=== PATIENT | male | born 1945 | race Caucasian/White ===

== ENCOUNTER 2024-01-25 16:13 | Outpatient (CLI) | payer MEDICARE, SELFPAY ==
--- NOTE | 2024-01-25 15:15 | DI.RAD_ITS ---
Exam(s) XR PELVIS AP EXAM: XR PELVIS AP CLINICAL HISTORY: RIGHT HIP PAIN. TECHNIQUE: 2D digital imaging was performed. Single AP view. COMPARISON: CR XR HIP RT MIN 2V AND PELVIS from 05/07/2023 FINDINGS: BONES: No acute fracture is present. No bony destructive lesion is seen. JOINTS: No dislocation present. Severe narrowing of the right hip joint space. Periarticular spurrin g. Mild narrowing of the left hip joint space. SOFT TISSUE: Normal. IMPRESSION: Advanced degenerative changes of the right hip. DATA REPOSITORY: RADIATION DOSE DELIVERED:
== END 2024-01-25 16:14 | disposition home or self-care (01) ==
LOC: DIORS 16:13
PROVIDERS: PCP Family Medicine; Referring Provider Family Medicine; Visit Provider Student in an Organized Health Care Education/Training Program
DX: M16.11 Unilateral primary osteoarthritis, right hip
CPT/HCPCS: 99204; 72170

== ENCOUNTER 2024-02-01 11:18 | Outpatient (CLI) | payer MEDICARE, SELFPAY ==
[2024-02-01 14:47] LABS: HCT 44.4 % (40.0-50.0); HGB 14.4 g/dL (13.5-17.5); MCH 30.4 pg (27.0-33.0); MCHC 32.4 % (32.0-36.0); MCV 94 fL (80-95); MPV 9.1 fL (8.0-11.0); Platelet Count 220 10^3/uL (130-400); RBC 4.74 10^6/uL (4.36-5.78); RDW 13.5 % (11.8-14.1); RDW-SD 46.8 fL
[2024-02-01 15:32] LABS: Anion Gap 7.5 mmol/L (3-11); BUN 18 mg/dL (7-18); CO2 29.5 mmol/L (21.0-32.0); Calcium 9.1 mg/dL (8.5-10.1); Chloride 103 mmol/L (98-107); Estimated GFR 77.04 (mL/min/1.73m2); Glucose 100 mg/dL (74-106); Sodium 140 mmol/L (136-145)
== END 2024-02-01 11:19 | disposition home or self-care (01) ==
LOC: LBO 11:18
PROVIDERS: PCP Family Medicine; Visit Provider Student in an Organized Health Care Education/Training Program
DX: M16.11 Unilateral primary osteoarthritis, right hip (principal); Z01.818 Encounter for other preprocedural examination
CPT/HCPCS: 36415; 80048; 85027

== ENCOUNTER 2024-02-10 07:42 | Day surgery (SDC) | payer MEDICARE, SELFPAY ==
[2024-02-10] VITALS (9 sets, daily range): BP systolic 125–162; BP diastolic 38–59; PULSE 37–41; RESP 14–16; TEMP 36–36.5; O2SAT 98–100; BMI 29.9
--- NOTE | 2024-02-10 07:29 | W.PM.DSUDISC ---
Date of service: 02/10/24 Time of Service: 07:29 Discharge Plan Disposition Patient Disposition: Home Condition: Good Discharge Details Reason For Visit: R THR Attending Provider: Rey Rios Primary Care Provider: Gilmar Albright Home Meds and New Rx's Prescriptions: New acetaminophen 500 mg tablet 1,000 mg PO TID Qty: 90 3RF aspirin 81 mg tablet,delayed release (DR/EC) 81 mg PO BID Qty: 60 0RF celecoxib 200 mg capsule 200 mg PO BID Qty: 60 0RF pantoprazole 40 mg tablet,delayed release (DR/EC) 40 mg PO DAILY Qty: 30 0RF dexamethasone 4 mg tablet 4 mg PO DAILY Qty: 2 0RF oxycodone 5 mg tablet 5 mg PO Q4H MDD 6 tabs PRN (Reason: pain) Qty: 20 0RF Continued sildenafil 100 mg tablet 100 mg PO DAILY PRN Rx Instructions: administer 30 minutes to 4 hours before activity Discontinued ibuprofen 400 mg tablet 400 mg PO Q8H PRN acetaminophen [Tylenol Extra Strength] 500 mg tablet 1,000 mg PO Q6H PRN Discharge Instructions Additional Instructions: Total Hip Discharge Instructions Activity: The most important activity is to walk. You should try to take short walks a few times a day. You have no restrictions on movement or positioning, but do not try to force what you do. You will find some stiffness and weakness with hip flexion (lifting your knee). Do not try to strengthen this too early, continue to practice walking and stairs and this will come. - Outpatient physical therapy can be helpful to help return you to a normal gait and improve your flexibility and strength. This can start around 2 weeks. For some patients, it?s not necessary. Usually this is determined at the time of discharge or at the first post-operative visit. - You should wear the LALO hose on both legs for 2 weeks. Dressing: Keep the surgical dressing in place for at least one week. After the first week it may be removed and replace with light gauze and tape or nothing. It may get wet after 3 days but avoid soaking the dressing. If it gets wet, just lightly pat dry. It is important to always keep some gauze between skin folds, especially when you are sitting. Spend some time with the wound exposed when you are lying flat as the incision does wrinkle onto itself. Medications: - You should take Tylenol and an anti-inflammatory Celebrex as your primary pain control medications. If the Celebrex is too expensive or not covered, please call the office for another alternative (Advil/Ibuprofen or Naproxen/Aleve). - You have been prescribed a stronger pain medication Oxycodone for breakthrough pain, take as needed as prescribed. - You have also been prescribed a stomach acid reduction agent Pantoprozole to help reduce stomach acid and reflux. - You have also been prescribed Decadron to help with post-operative nausea and pain. You will take this for two days starting tomorrow. - You will be taking Aspirin 81mg twice a day for DVT prevention unless instructed otherwise. - If you have constipation you should take Colace or Miralax (both [id number]). It takes most people 3-4 days to have a bowel movement. Follow-up: 2 weeks If you have any acute concerns or questions, please do not hesitate to contact the office at [phone]. You may contact Dr. Rios with any questions after hours through the hospital at [phone] or on his cell phone at [phone]. Referrals: Rey Rios MD [ [facility] STAFF PHYSICIAN] - Equipment/Supplies: Walker Activity:: Activity as Tolerated Shower/Bathe:: 72 hours Diet:: As Tolerated DS: Diagnosis Discharge Diagnosis (1) Osteoarthritis of right hip: Status: Acute
[2024-02-10] MEDS: Lactated Ringers 1,000 ML 80 ML IV (08:36)
[2024-02-10] MEDS: Acetaminophen 500 MG TAB 1000 MG PO (08:37)
[2024-02-10] MEDS: Celecoxib 200 MG CAP 400 MG PO (08:37)
--- NOTE | 2024-02-10 08:43 | ANES.PREOP_ITS ---
General Info Date of Service Date Performed: 02/10/24 Height: 5 ft 4 in Weight: 79.1 kg Body Mass Index (BMI): 29.9 Surgical Procedure: Operation Date: 02/10/24 10:50 Proposed Procedure Side Surgeon p Hip Total Hip Anterior, ACTIS Right Rey Rios MD Meds Allergies and Home Medications Allergies Allergy/AdvReac Type Severity Reaction Status Date / Time insect venom Allergy edema Verified 02/10/24 08:12 shellfish derived Allergy facial Verified 02/10/24 08:12 edema Home Medication Medication Instructions Recorded sildenafil 100 mg tablet 100 mg PO DAILY PRN 12/23/23 acetaminophen 500 mg tablet 1,000 mg (2 x 500 mg) PO TID #90 02/10/24 tabs aspirin 81 mg tablet,delayed 81 mg PO BID #60 tabs 02/10/24 release celecoxib 200 mg capsule 200 mg PO BID #60 caps 02/10/24 dexamethasone 4 mg tablet 4 mg PO DAILY #2 tabs 02/10/24 oxycodone 5 mg tablet 5 mg PO Q4H PRN pain #20 tabs 02/10/24 pantoprazole 40 mg tablet,delayed 40 mg PO DAILY #30 tabs 02/10/24 release Current Visit Medications: Current Medications Generic Name Dose Route Start Last Admin Trade Name Freq PRN Reason Stop Dose Admin Acetaminophen 1,000 mg 02/10/24 06:00 02/10/24 08:37 Acetaminophen 500 Mg Tab PO 02/10/24 23:59 1,000 mg PREOP HAYDE Administration Acetaminophen 1,000 mg 02/10/24 07:27 Acetaminophen 500 Mg Tab PO 03/11/24 07:26 TID PRN PRN Analgesia Celecoxib 400 mg 02/10/24 06:00 02/10/24 08:37 Celecoxib 200 Mg Cap PO 02/10/24 23:59 400 mg PREOP HAYDE Administration Docusate Sodium 100 mg 02/10/24 07:27 Docusate Sodium 100 Mg Cap PO 03/11/24 07:26 BID PRN PRN Constipation Ringer's Solution 1,000 mls @ 80 mls/hr 02/10/24 06:00 02/10/24 08:36 IV 02/10/24 23:59 80 mls/hr INFUSION HAYDE Administration Cefazolin Sodium/Dextrose 2 gm in 50 mls @ 100 mls/hr 02/10/24 06:00 Ancef Duplex IVPB 02/10/24 23:59 PREOP HAYDE Tranexamic Acid/Sodium Chloride 1,000 mg in 100 mls @ 600 mls/hr 02/10/24 06:00 IVPB 02/10/24 23:59 PREOP HAYDE IV Miscellaneous Supplies 1 each 02/10/24 06:00 Iv Access IV 02/10/24 23:59 DIRECTED HAYDE Ondansetron HCl 4 mg 02/10/24 07:27 Ondansetron 4 Mg/2 Ml Vial IVP 03/11/24 07:26 Q6H PRN PRN Nausea Oxycodone HCl 0 mg 02/10/24 07:27 Oxycodone 5 Mg Tab PO 03/11/24 07:26 Q3H PRN PRN Pain Polyethylene Glycol 17 gm 02/10/24 07:27 Polyethylene Glycol 3350 17 Gm Packet PO 03/11/24 07:26 BID PRN PRN Constipation Sodium Chloride 0 ml 02/10/24 06:00 Normal Saline Flush 10 Ml Syr IV 02/10/24 23:59 PRN PRN Sodium Chloride 0 ml 02/10/24 06:00 Normal Saline 10 Ml Vial IJ 02/10/24 23:59 DIRECTED PRN Sterile Water 0 ml 02/10/24 06:00 Water,Injection,Sterile 10 Ml Vial IJ 02/10/24 23:59 DIRECTED PRN PFSH Active Problems Active Problems: Problem Status Onset Code Bradycardia R00.1 Systolic murmur R01.1 Osteoarthritis of right hip M16.11 Medical History Medical History Obesity Hyperlipidemia Surgical History Surgical History History of cholecystectomy Tobacco Smoking/Tobacco Use Status: Never Alcohol Alcohol Intake: never Substance Use Substance use: Never Substance use type: does not use Vital Signs and Lab Results Vital Signs Most Recent Vital Signs in EMR: Most Recent Vital Signs Temp Pulse Resp BP Pulse Ox 36.5 C 41 L 15 147/56 H 98 02/10/24 07:50 02/10/24 07:50 02/10/24 07:50 02/10/24 07:50 02/10/24 07:50 Lab Results Blood Type / Crossmatch: No Data to Display Complete Blood Count: White Blood Count 7.80 10^3/uL (4.4-10.8) 02/01/24 14:40 Red Blood Count 4.74 10^6/uL (4.36-5.78) 02/01/24 14:40 Hemoglobin 14.4 g/dL (13.5-17.5) 02/01/24 14:40 Hematocrit 44.4 % (40.0-50.0) 02/01/24 14:40 Platelet Count 220 10^3/uL (130-400) 02/01/24 14:40 Complete Metabolic Panel: Sodium 140 mmol/L (136-145) 02/01/24 14:40 Potassium 4.0 mmol/L (3.5-5.1) 02/01/24 14:40 Chloride 103 mmol/L (98-107) 02/01/24 14:40 Carbon Dioxide 29.5 mmol/L (21.0-32.0) 02/01/24 14:40 BUN 18 mg/dL (7-18) 02/01/24 14:40 Creatinine 1.0 mg/dL (0.70-1.30) 02/01/24 14:40 Est GFR (CKD-EPI 2020) 77.04 (mL/min/1.73m2) 02/01/24 14:40 Calcium 9.1 mg/dL (8.5-10.1) 02/01/24 14:40 Glucose 100 mg/dL (74-106) 02/01/24 14:40 Liver Function Panel: No Data to Display Coagulation Panel: No Data to Display Cardiac Panel: No Data to Display Arterial Blood Gas: No Data to Display Venous Blood Gas: No Data to Display Pancreas Panel: No Data to Display Thyroid Panel: No Data to Display Infectious Disease: No Data to Display Blood Cultures: No Data to Display Toxicology Panel: No Data to Display Imaging and Studies Imaging and Studies Study information below may be from another EMR and interpreted by another provider. Please see original notes in EMR for more complete details. Echocardiogram Summary: (External Report): 02/10/22: EF 64%, aortic sclerosis w ithout stenosis Anesthesia Assessment and Plan Anesthesia History Personal History: No History of Anesthesia Complications Family History: No Family History of Anesthesia Complications Exercise Tolerance Exercise Tolerance: Metabolic Equivalents>4 Pertinent Negatives Pertinent Negatives: No Symptoms of GERD, No Major Cardiovascular Symptoms or Complaints and No Major Pulmonary Symptoms or Complaints Cardiac & Pulmonary Exam Cardiac Exam: Heart Murmur Present Pulmonary Exam: Clear Bilateral Breath Sounds Implantable Cardiac Device Does patient have a Pacemaker or an ICD?: No Airway Exam Known Difficult Airway: No Mallampati Class: 2 Mouth Opening: Normal (> 3cm) Thyromental Distance: Greater than 3 cm Neck Range of Motion: Full ROM Neck Circumference: Thick Teeth Condition: Removable Dentures/Plates Upper ASA Classification ASA Score: ASA 2 Emergency Case?: No NPO Status NPO Status: NPO Clears >2 hours, Solids >8 hours Anesthesia Plan Resuscitation Status: Full Code Anesthesia Technique: Spinal Anesthesia Airway Planned: Natural Airway Monitors Used: Standard Monitors
[2024-02-10] MEDS: ceFAZolin 2 GM/50 ML BAG IVPB (10:26)
[2024-02-10] MEDS: TRANEXAMIC ACID/SOD. CHL. 1,000 MG/100 ML BAG 600 MG IVPB (10:32)
--- NOTE | 2024-02-10 11:32 | DI.RAD_ITS ---
Exam(s) XR HIP RT IN OR EXAM: XR HIP RT IN OR CLINICAL HISTORY: OA RIGHT HIP TECHNIQUE: 2D and realtime digital imaging was performed. CONTRAST MATERIAL: Refer to procedure report. COMPARISON: CR XR PELVIS AP from 01/25/2024 FINDINGS: Fluoroscopy was provided for Dr. Rios during the performance of a right total hip replacement. Please refer to the procedure report for complete details. Ka,r=4.17 mGy IMPRESSION: RADIATION DOSE DELIVERED: 0.0 1832.3 0
--- NOTE | 2024-02-10 12:03 | ROE_ITS ---
Date of service: 02/10/24 Time of Service: 10:40 Operative Note Operative Note DATE OF PROCEDURE: 02/10/24 PRE-OP DIAGNOSIS: Right Hip Osteoarthritis POST-OP DIAGNOSIS: same PROCEDURE: Right Anterior Total Hip Arthroplasty with Intraoperative Navigation SURGEON: Rey Rios ELECTRIC SCOOP OPERATOR: Carmelo De La O ANESTHESIA TYPE: Spinal Refer to Anesthesia Record ESTIMATED BLOOD LOSS: 100 PATHOLOGY: none sent TOURNIQUET TIME: 0 COMPLICATIONS: None Patient was transported to: PACU Patient's condition: stable Implants: 1. Depuy [place] Acetabular Component, 54mm 2. Depuy Acetabular Liner, 33w85it 3. Depuy Actis Standard Collared Femoral Stem, Size 4 4. Depuy Altrx Ceramic Femoral Head, Size 36+5mm Indications: I have seen Ruben in clinic for symptoms of hip arthritis, confirmed with radiographic findings. He has exhausted nonoperative methods and was having significant limitations in daily function and desired better function and less pain. I discussed the technical details of a hip replacement. I explained the risks of the procedure to include, but not limited to, bleeding, infection, pain, stiffness, fracture, damage to nerves and vessels, damage to muscles and tendons, loosening, instability, leg length inequality, need for repeat pro cedure, blood clot and cardiopulmonary demise. Despite these risks, Ruben elected to proceed. Findings: There was significant signs of arthritis throughout the hip, both acetabulum and femoral head/neck. Procedure Description: Ruben was greeted in the preoperative holding area where the correct side was identified and marked. The consent was reviewed with the patient and signed. The history and physical was updated. All questions were answered. He was taken back to the operating room. A spinal anesthestic was then administered. The feet were wrapped with cast padding and Coban and then placed into the boot liners and then into the boots. Care was taken to protect the skin and make sure the heels were fully down and the boots were stable. The patient was then positioned onto the HANA table. Both legs were held in a neutral position. SCDs were applied. The patient was then slid down onto a peroneal post. Prophylactic antibiotics in the form of Cefazolin were administered. 1g of Tranxemic Acid was given intravenously within 30 minutes of incision. The right leg was then prepped with Chloraprep and draped in a standard fashion. A second prep with Chloraprep was performed prior to placement of a shower-curtain type drape with Iodine impregnated skin protection. A timeout to confirm correct identity, side and site, procedure, allergies, anesthesia, and medical concerns was performed. An obliquely oriented incision was made starting lateral to the ASIS and running distal over the Tensor Fascia Geraldine (TFL) muscle belly toward the fibular head, approximately 10cm. The skin and soft tissue was dissected sharply, through Alea?s fascia, and to the fascia of the TFL. With the fascia and superior border of the IT band identified, the fascia was incised with a new knife just above any perforators from the IT band. The TFL muscle belly was bluntly dissected away from the fascia and moved laterally. The fat between TFL and rectus was identified to ensure the dissection was not within the TFL. Blunt dissection created space between abductors and the capsule and retractor was placed over the lateral femoral neck. The fibers of the rectus femoris tendon were identified and these were freed from the anterior capsule. A second cobra retractor was placed around the medial femoral neck. The TFL was further retracted laterally to show the deep fascia. Careful dissection through this layer identified three main crossing vessels of the lateral femoral circumflex. These were cauterized in multiple locations and then cut without any noticeable bleeding. The TFL was further released bluntly from the deep fascia to expose anterior hip capsule and fat The soft tissue orthopaedic retractor was then placed beneath the TFL and against sartorius and medial soft tissues to protect and retract the soft tissues. A T-capsulotomy was then performed starting at the superior lateral acetabulum and moving distally to the intertrochanteric ridge. These capsular flaps were tagged with a No. 1 Ethibond and elevated from within. The capsular flaps were released to the shoulder of the lateral neck and to the lesser trochanter to give excellent visualization of the proximal femur. A neck osteotomy was performed using an oscillating saw based on preoperative templates. This cut started in the shoulder and of the lateral neck and exited medially. The saw was at all times directed medially to avoid injury to the greater trochanter. Gross traction was applied to the leg and the osteotomy opened. The femoral head was removed with a corkscrew, making sure to protect the TFL on its exit. Traction was released after head removal. This was measur ed on the back table to determine the starting reamer size. Portions of the rectus obscuring visualization were minimally elevated off the superior acetabulum. An anterior retractor was placed over the anterior wall between capsule and labrum and attached to the Gripper retraction system. The femur was rotated to 90 degrees and medial capsule was fully released until the lesser trochanter was palpable and visible; the femur was returned to 30 degrees. A posterior retractor was placed similarly between capsule and labrum. This provided excellent visualization. The contents of the cotyloid fossa were removed with electrocautery and the labrum was removed with a knife. There was a notable floor osteophyte. There was significant chondromalacia of the superior acetabulum. Acetabular reaming began with a 48mm reamer. This first reaming was directed anterior to posterior and medial to get down to the true floor. This was inspected and reamed until the true floor was reached. The anterior retractor was then released and entry and exit was provided by traction on the capsular flaps. I then reamed sequentially up to a 54mm reamer where good fit was obtained. The larger reamers were oriented based on anatomical reference of the anterior and lateral francisco to ensure proper abduction and anteversion. Positioning and size was confirmed with the fluoroscopy. A 54mm Depuy [place] acetabular component was selected. The acetabulum was reamed around the periphery with the selected acetabular size to prevent a rim fit. The deep tissues were irrigated. The acetabular component was then impacted in a position of about 40-45 degrees of abduction and 15-20 degrees of anteversion, using the patient?s anatomy as the ultimate landmark. Fluoroscopy was used to confirm this. There was excellent endbander of the acetabular component and the inserting handle was removed. A large inferior osteophyte was then removed with an osteotome. The acetabular liner, Depuy [id number] polyethylene liner, was inserted and lined up with the tines of the acetabular component. There was no soft tissue interposition. The liner was then impacted into position and confirmed to be well-seated. A portion of the kevin-articular cocktail was then injected around the acetabulum into the capsule and periosteum. This cocktail consisted of 123mg of Ropivacaine, 0.25mg of Epinephrine, 0.04mg of Clonidine, and 15mg of Ketorolac, diluted to 50cc. The leg was rotated to 120 degrees. Any remaining medial capsule was released until the lesser trochanter was easily palpable. A retractor was placed medially. The lateral capsule was further released into the shoulder to allow access to the greater trochanter. A Squires retractor was placed over the greater trochanter which allowed the trochanter to flip in front of the capsule for excellent exposure. The leg was brought down into maximal extension and 20 degrees of adduction while ensuring there was no impingement on the acetabulum. Any remnant capsule within the trochanter was released. Piriformis and obturator externis were identified and protected. There was excellent access to the proximal femur. The lateral neck remnant was removed with a rongeur. A blunt canal probe was used to identify the canal and trajectory for later broaching. A box osteotome initiated the broach course. A small curved rasp and a curved curette were used to work laterally. Broaching then began with a starter Actis broach. This was inserted manually around the trochanter and into the canal before mallet blows. The broach was seated to a few millimeters below the cut level based on the neck cut and the preoperative template. Sequential broaching was continued with the [employer] pneumatic broaching device until a tight fit was obtained with good rotational control of the femur. A trial standard neck was inserted along with a +5 trial head. The leg was brought out of extension and adduction and then reduced with traction and internal rotation. The leg was stable anteriorly in a position of 30 degrees of extension and 90 degrees of external rotation. Fluoroscopy was used to ensure there was no fracture and the stem was seated well. Leg lengths were checked with an AP pelvis and pelvic reference points. [employer] navigation system was used to confirm appropriate positioning and leg length and offset. Once content with the desired offset and leg lengths, the leg was brought back into extension, external rotation and adduction. The periosteum and surrounding tissue was injected with remaining portion of the kevin-articular cocktail. The proximal femur was irrigated as well as the deep tissues. The eROIuy Actis standard collared stem, size 4, was then manually inserted into the proximal femur making sure to control rotation. It was then malleted into position with light blows, giving breaks to allow bone expansion and decrease risk of fracture. The selected Depuy Altrx Ceramic Head, size 36+5mm, was then placed onto the clean and dry trunnion and secured with impaction onto the tapered fit. The leg was brought back out of extension and adduction and reduced with traction and internal rotation. Stability was confirmed with no shuck at 90 degrees of external rotation and 30 degrees of extension. No impingement through range of motion arc. Final x-ray images were obtained with fluoroscopy to confirm adequate positioning and no intraoperative fracture. The deep tissues were thoroughly irrigated with Surgiphor, betadine solution. This was allowed to sit in the wound for 3 minutes before being thoroughly irrigated out with normal saline. The capsule was then reapproximated with the previously placed Ethibond sutures. The TFL fascia was finally closed with a No. 2 Stratafix, barbed suture. Deep tissues were then reapproximated with 0 Vicryl and a running 2-0 Vicryl. The skin was closed with a running 4-0 Monocryl in a subcuticular fashion. This was reinforced with skin glue. A Mepilex silver dressing was applied. At the end of the case, all counts were correct. Ruben was transferred to the hospital bed without difficulty and suffering no apparent complication. Ruben has a good prognosis. Physical therapy will start today and without restrictions, weight-bearing as tolerated. Aspirin 81mg BID will be used for DVT prophylaxis.
--- NOTE | 2024-02-10 12:41 | W.ANESPOSTOP ---
Postoperative Evaluation Date, Time and Location Date Performed: 02/10/24 Time Performed: 12:39 Patient Location: PACU Vital Signs Most Recent Imported Vital Signs: Most Recent Vital Signs Temp Pulse Resp BP Pulse Ox 36.4 C L 38 L 14 162/40 H 100 02/10/24 12:34 02/10/24 12:34 02/10/24 12:34 02/10/24 12:34 02/10/24 12:34 Pain Score Most Recent Pain Score: Most Recent Pain Score Pain Level 0 02/10/24 12:34 Assessment Mental Status: Awake (Alert & Oriented to Patient Baseline) Airway and Respiratory Function: Patent airway with normal (patient baseline) respiratory exam Cardiovascular Function: Hemodynamically Stable Hydration Status: Adequately Hydrated Nausea & Vomiting: No Nausea or Vomiting Pain: Pt. Denies Any Pain Peripheral Nerve Block: Patient did not receive a nerve block
[2024-02-10] MEDS: oxyCODONE 5 MG TAB PO (14:04)
[2024-02-10] MEDS: Tranexamic Acid 650 MG TAB 1300 MG PO (14:04)
--- NOTE | 2024-02-10 14:47 | IN_ITS ---
PT Notes Visit Reasons: R THR Physical Therapy Day Surgery Initial Evaluation Date: 02/10/2024 Referring Doctor: MARY Lake PT Orders: PT CONSULT: S/P Ortho Surgery Precautions: WBAT on the R LE with AD. Patient Profile/Admitting Diagnosis: Patient is a 78-year-old male with degenerative joint disease of the R hip and is S/P total anterior hip arthroplasty on postoperative day 0. PMHX: All Active Problems (Updated 01/29/24 @ 08:17 by Froy Delgado RN) Bradycardia (Acute) Systolic murmur (Acute) Osteoarthritis of right hip (Acute) Medical History (Updated 01/29/24 @ 08:17 by Froy Delgado RN) Obesity Hyperlipidemia Social History/Home Situation: Lives with . Has a flight of steps to the bedroom. Can use his recliner on the main floor to sleep on if needed. Daughter who is a nurse will be with her parents for a day or two to provide needed assistance. Equipment Owned/DME: [facility] Subjective: Reported 5-6/10 pain with seated exercises. Pain diminished to 3-4/10 with walking. R hip and knee felt stiff but almost resolved with ambulation activity. Denied headache, chest pain, and lightheadedness throughout. Objective: General Observation: Mepilex Ag over surgical incision. TEDS to B legs and feet. Mental Status: A and O x 4 Pain: As above ROM: Right Lower Extremity: Hip flexion allows up to 120 degrees with pain at end of range. Hip abduction WFL. Knee flexion WFL. Ankle dorsiflexion WFL. Ankle plantarflexion WFL. Left Lower Extremity: Hip flexion WFL. Hip abduction WFL. Knee flexion WFL. Ankle dorsiflexion WFL. Ankle plantarflexion WFL. Strength: Right Lower Extremity: Hip flexors3-/5. Hip abductors 4-/5. Knee flexors 4/5. Knee extensors 4-/5. Ankle dorsiflexors 5/5. Ankle plantarflexors 5/5. Left Lower Extremity:Hip flexors 5/5. Hip abductors 5/5. Knee flexors 5/5. Knee extensors 5/5. Ankle dorsiflexors 5/5. Ankle plantarflexors 5/5. Sensation: Intact as to pain and light pressure in B LE Bed Mobility/Transfers: Minimal cueing provided for use of B hands as needed for support, movement sequence, AD management, and posture to reduce fall risk and minimize pain report Sit to stand stand by assist Stand to sit stand by assist Bed to chair stand by assist Gait: Facilitated safe and correct performance of level surface ambulation covering a distance of 150 feet using front-wheeled walker with standby assist with reciprocal step through gait pattern requiring minimal verbal cueing for increasing hip and knee flexion on the right side to minimize stiffness while facilitating symmetrical gait. Standby assist provided. Stairs: Guided patient with safe and correct negotiation of 3 x 4 inch steps and 2 x 6 inch steps holding onto bilateral rails with step to gait pattern requiring minimal verbal cueing for increased hip and knee flexion on the right during ascent, hand placement, posture, and movement sequence to reduce fall risk and minimize pain report. Balance: Static Sitting: Normal Dynamic Sitting: Normal Static Standing: Fair Dynamic Standing: Fair Special Tests: Mobility Limitations Standardized Measure [facility] AM-PAC 6 clicks Basic Mobility Inpatient Short Form: Raw Score: 23 CMS Score: 11% deficit Informed Consent/Education: Patient instructed in purpose of PT consult. Packet containing ERIC exercise protocol has been given to patient. Education and training on initial set of exercises that can be done at home have been completed with patient, patient's , and patient's daughter. Trained patient with correct performance of exercises below to maximize motor control, joint flexibility, soft tissue extensibility of the [] hip musculature to facilitate return to independent functional mobility performance. Access Code: [email or web address] URL: [email or web address] Date: 02/09/2024 Prepared by: Norma Ryan Exercises - Gluteal Sets - 1 x daily - 7 x weekly - 1 sets - 10 reps - 5 hold - Supine Heel Slide - 1 x daily - 7 x weekly - 1 sets - 10 reps - 5 hold - Supine Ankle Pumps - 1 x daily - 7 x weekly - 1 sets - 10 reps - 5 hold - Seated March - 1 x daily - 7 x weekly - 1 sets - 10 reps - 5 hold - Seated Long Arc Quad - 1 x daily - 7 x weekly - 1 sets - 10 reps - 5 hold Assessment: Patient requires use of a front-wheeled walker for mobility ADL performance to maximize independence and reduce fall risk. Patient presents with clinical signs and symptoms consistent with current/admitting diagnoses that have resulted to mobility limitations, gait instability, generalized weakness, and impairment of motor control as demonstrated by the following impairment level findings: 1. Decreased strength to left hip major muscle groups 2. Impaired standing balance 3. Limitation of joint range of motion in left hip Impairments are contributing to the following functional limitations: 1. Inability to safely ambulate without assistive device 2. Increase completion time for mobility ADL performance 3. Increased fall risk Patient is assessed as a [id number] moderate complexity based on the following: History: 78-year-old male with impairment level findings, functional limitations, and past medical history as indicated above Examination: Demonstrable impairment in strength, balance, and mobility level with underlying impairments and functional limitations as documented above Presentation: Evolving Decision Makin moderate complpexity Goals: N/A. PT evaluation and 1-2 treatment sessions only for functional mobility training using recommended AD and for HEP instruction. Plan of Care/Treatment Plan: N/A. PT evaluation and 1-2 treatment session only for functional mobility training using recommended AD and for HEP instruction. DISCHARGE RECOMMENDATIONS: Home when medically cleared by orthopedic surgeon. Recommend outpatient PT services in order to optimize functional mobility outcomes and facilitate return to independent community ambulation without an assistive device. TREATMENT CODE/TIME: 14171 x 20 minutes for 1 unit, 76325 x 17 minutes for 1 unit (14:47-15:25). Thank you for the opportunity to participate in the care of this patient. Please sign an return this page within 30 days if you agree with the above POC. Thank you! Physician Signature Date [facility] Thank you for the opportunity to participate in the care of this patient. Norma Ryan PT, DPT, CLT [facility] [place] [employer], [place]
== END 2024-02-10 15:36 | disposition home or self-care (01) ==
LOC: SUR 07:43
PROVIDERS: PCP Family Medicine; Visit Provider Student in an Organized Health Care Education/Training Program
PROC: (CPT 27130; principal; 2024-02-10 10:30)
DX: M16.11 Unilateral primary osteoarthritis, right hip (principal); E66.9 Obesity, unspecified; E78.5 Hyperlipidemia, unspecified
CPT/HCPCS: 20985; 27130; C1776; 97162; 97530; 73501; J0690; J1100; J2001; J2371; J2401; J2405; J2704

== ENCOUNTER 2024-02-25 15:32 | Outpatient (CLI) | payer MEDICARE, SELFPAY ==
--- NOTE | 2024-02-25 14:30 | DI.RAD_ITS ---
Exam(s) XR HIP RT COMPLETE AP PELVIS EXAM: XR HIP RT COMPLETE AP PELVIS CLINICAL HISTORY: 1ST POST OP S/P R ERIC. TECHNIQUE: 2D digital imaging was performed. Two views COMPARISON: CR XR PELVIS AP from 01/25/2024 XA XR HIP RT IN OR from 02/10/2024 FINDINGS: BONES: No acute fracture is present. No bony destructive lesion is seen. JOINTS: No dislocation present. There has been no change in the alignment of the right hip prosthes is. Mild degenerative changes are noted in the left hip. SOFT TISSUE: Normal. IMPRESSION: Stable appearance of right hip prosthesis. DATA REPOSITORY: RADIATION DOSE DELIVERED:
== END 2024-02-25 15:33 | disposition home or self-care (01) ==
LOC: DIORS 15:32
PROVIDERS: PCP Family Medicine; Referring Provider Family Medicine; Visit Provider Student in an Organized Health Care Education/Training Program
DX: Z96.641 Presence of right artificial hip joint (principal); Z47.1 Aftercare following joint replacement surgery
CPT/HCPCS: 73502

== ENCOUNTER → 2024-03-24 13:37 | Outpatient (BNVA) | payer MEDICARE, SELFPAY | PROVIDERS: PCP Family Medicine; Referring Provider Family Medicine; Visit Provider Student in an Organized Health Care Education/Training Program | DX: Z47.1 Aftercare following joint replacement surgery (principal); Z96.641 Presence of right artificial hip joint ==

== ENCOUNTER 2025-03-06 15:54 | Outpatient (CLI) | payer MEDICARE, SELFPAY ==
--- NOTE | 2025-03-06 12:45 | DI.RAD_ITS ---
Exam(s) XR HIP RT AP LAT ONLY EXAM: XR HIP RT AP LAT ONLY INDICATION: ANNUAL F/U R ERIC. COMPARISON: CR XR HIP RT COMPLETE AP PELVIS from 02/25/2024 TECHNIQUE: 2D digital imaging was performed. Two views. FINDINGS: There is a total hip prosthesis in place. The alignment is unchanged. No abnormal surrounding bony lucencies. DATA REPOSITORY: RADIATION DOSE DELIVERED:
== END 2025-03-06 15:55 | disposition home or self-care (01) ==
LOC: DIORS 15:55
PROVIDERS: PCP Family Medicine; Visit Provider Physician Assistant
DX: Z96.641 Presence of right artificial hip joint (principal); Z47.1 Aftercare following joint replacement surgery
CPT/HCPCS: 99213; 73502